=== PATIENT | female | born 1960 | race African-American/Black ===

== ENCOUNTER 2017-09-01 00:50 | Observation (INO) | payer OTHER ==
[~2017-09-01] VITALS: Ht 165.1 cm; Wt 82.6 kg
[~2017-09-01 00:50] MED LIST: ASPIRIN EC81 MG PO; CLONIDINE HCL0.3 MG PO; GLIMEPIRIDE2 MG PO; LIPITOR20 MG; LOSARTAN POTAS100 MG PO; PANTOPRAZOLE SO40 MG PO
[2017-09-01] MEDS ORDERED: LABETALOL HCL IV 5 MG/ML 20ML MDV IV STA ×2 (01:15→02:57)
[2017-09-01 01:40] LABS: BASOPHILS # (AUTO) 0.1 (0.0-0.1); BASOPHILS % 0.5 % (0.0-1.0); BILIRUBIN,URINE NEGATIVE (NEGATIVE); CLARITY,URINE SL CLOUDY (CLEAR); COLOR,URINE YELLOW (YELLOW); EOSINOPHILS # (AUTO) 0.2 (0.0-0.4); EOSINOPHILS % 1.6 % (0.0-6.0); HEMATOCRIT 47.6 % (34.2-44.1); HEMOGLOBIN 16.1 g/dL (12.0-16.0); KETONES,URINE NEGATIVE (NEGATIVE); LEUKOCYTE ESTERASE ,URINE NEGATIVE (NEGATIVE); LYMPHOCYTES # (AUTO) 3.4 (1.0-3.2); LYMPHOCYTES % 34.2 % (18.0-39.1); MEAN CORPUSCULAR HEMOGLOBIN 26.1 pg (28-32); MEAN CORPUSCULAR HGB CONC 33.8 g/dL (31-35); MONOCYTES # (AUTO) 0.9 (0.2-0.8); MONOCYTES % 9.4 % (4.4-11.3); NEUTROPHILS # (AUTO) 5.4 (2.1-6.9); NITRITE,URINE NEGATIVE (NEGATIVE); PLATELET COUNT 214 x10e3/uL (140-360); PROTEIN,URINE DIPSTICK 2+ (NEGATIVE); RED BLOOD COUNT 6.18 x10e6/uL (3.6-5.1); RED CELL DISTRIBUTION WIDTH 14.7 % (11.7-14.4); URINE UROBILINOGEN 0.2 mg/dL (0.2 - 1)
[2017-09-01 01:46] LABS: AMORPHOUS SEDIMENT,URINE MODERATE (FEW); BACTERIA,URINE MODERATE /HPF; EPITHELIAL CELLS,URINE FEW /LPF; RBC,URINE 0-5 /HPF (0-5); WBC,URINE (MAN) 0-5 /HPF (0-5)
[2017-09-01 01:49] LABS: INR 0.93; PROTHROMBIN TIME 12.9 seconds (11.9-14.5)
[2017-09-01 01:50] LABS: PARTIAL THROMBOPLASTIN TIME 28.3 seconds (23.8-35.5)
[2017-09-01 01:59] LABS: ALANINE AMINOTRANSFERASE 37 IU/L (0-55); ALBUMIN 4.6 g/dL (3.5-5.0); ALKALINE PHOSPHATASE 129 IU/L (40-150); ANION GAP 17.5 mmol/L (8-16); BLOOD UREA NITROGEN 10 mg/dL (7-26); BUN/CREATININE RATIO 11 (6-25); CALCIUM 10.9 mg/dL (8.4-10.2); CARBON DIOXIDE 22 mmol/L (22-29); CHLORIDE 105 mmol/L (98-107); CREATINE KINASE 61 IU/L (29-168); CREATININE, SERUM 0.87 mg/dL (0.57-1.11); EST GLOMERULAR FILTRATION RATE > 60 ML/MIN (60-); GLUCOSE 137 mg/dL (74-118); MAGNESIUM 1.9 MG/DL (1.3-2.1); POTASSIUM 3.5 mmol/L (3.5-5.1); SODIUM 141 mmol/L (136-145)
[2017-09-01 02:01] LABS: TROPONIN I 0.027 ng/mL (0-0.300)
[2017-09-01] MEDS ORDERED: AMLODIPINE BESY10 MG PO (02:25)
[2017-09-01] MEDS ORDERED: ASPIR 8181 MG PO (02:25)
[2017-09-01] MEDS ORDERED: LOSARTAN POTAS100 MG PO (02:25)
[2017-09-01] MEDS ORDERED: GLIMEPIRIDE2 MG PO (02:26)
[2017-09-01] MEDS ORDERED: PANTOPRAZOLE SO40 MG PO (02:26)
[2017-09-01] MEDS ORDERED: LIPITOR20 MG PO (02:26)
[2017-09-01] MEDS ORDERED: COREG12.5 MG PO (02:27)
[2017-09-01] MEDS ORDERED: CLONIDINE HCL0.3 MG PO (02:29)
[2017-09-01] MEDS ORDERED: VESICARE5 MG PO (02:33)
--- NOTE | 2017-09-01 02:56 | Diagnostic Imaging Report ---
History:Headache , HBP Comparison studies:None Technique: Axial images were obtained from the skull base to the vertex. Coronal and sagittal images reconstructed from the axial data. Intravenous contrast: None Findings: Scalp/skull: No abnormalities. Extra-axial spaces: No masses. No fluid collections. Brain sulci: Mildly prominent. Ventricles: Mild compensatory dilatation. No hydrocephalus. Parenchyma: Scattered small hypodensities in the supratentorial white matter are small vessel ischemic changes. Chronic left striatocapsular lacunar infarct.. No masses, hemorrhage, acute or chronic cortical vascular insults. Sellar/suprasellar region: No abnormalities. Craniocervical junction: Patent foramen magnum. No Chiari one malformation. Incidental findings: Atherosclerotic calcifications in the carotid siphons . Impression: No acute abnormalities. Chronic findings: 1. Mild generalized volume loss. 2. Mild supratentorial white matter small vessel ischemic changes. Signed by: DR Jaylen Jacobs M.D. on 09/01/2017 2:53 AM
[2017-09-01] MEDS ORDERED: KETOROLAC TROMETHAMINE 30 MG/ML VIAL IV STA (02:57)
[2017-09-01] MEDS ORDERED: PROMETHAZINE 12.5MG/ NACL 0.9% 12.5 MG/50 ML BAG IV ONE (03:00)
[2017-09-01] MEDS ORDERED: DIPHENHYDRAMINE HCL INJ 50 MG/ML VIAL IV ONE (03:00)
--- NOTE | 2017-09-01 03:04 | Diagnostic Imaging Report ---
CHEST SINGLE (PORTABLE), 09/01/2017 1:15 AM Technique: CHEST SINGLE (PORTABLE) Comparison: 02/25/2017 Clinical history: Chest Findings: Heart/mediastinum: Stable, likely normal for technique. Lungs: No consolidation or edema. Pleural spaces: No effusion or pneumothorax. Impression: No acute abnormality Signed by: Dr Makenzie Mandel MD on 09/01/2017 3:00 AM
[2017-09-01] MEDS ORDERED: DIPHENHYDRAMINE HCL INJ 1 ML ONE (03:06)
[2017-09-01] MEDS ORDERED: NIFEDIPINE 10 MG CAP PO STA (03:10)
[2017-09-01] MEDS ORDERED: ONDANSETRON HCL INJ 2 MG/ML VIAL IV PRN (03:15)
[2017-09-01] MEDS ORDERED: LABETALOL HCL IV 5 MG/ML 20ML MDV IV PRN (03:15)
[2017-09-01] MEDS ORDERED: DEXTROSE 50% SYRINGE 50 ML IV PRN (03:15)
[2017-09-01] MEDS ORDERED: ENALAPRILAT IV INJ 1.25 MG/ML VIAL IV STA (03:57)
[2017-09-01] MEDS: NITROGLYCERIN 2% OINT 1 GM PKT TOP SCH ×3 (04:03→11:28)
[2017-09-01 05:15] VITALS: BP 146/82
[2017-09-01 06:13] VITALS: BP 146/82
[2017-09-01 08:59] VITALS: BP 109/75
[2017-09-01] MEDS ORDERED: CLONIDINE HCL 0.3 MG TAB PO SCH (09:00)
[2017-09-01] MEDS ORDERED: LOSARTAN POTASSIUM 100 MG TAB PO SCH (09:00)
[2017-09-01] MEDS: INSULIN REGULAR, HUMAN 100 UNIT/1 ML 3ML VIAL SQ SCH ×3 (09:00→16:30)
[2017-09-01] MEDS ORDERED: PANTOPRAZOLE SOD 40 MG TABEC PO SCH (09:00)
[2017-09-01] MEDS ORDERED: AMLODIPINE BESYLATE 10 MG TAB PO SCH ×2 (09:00→21:00)
[2017-09-01] MEDS ORDERED: ASPIRIN 325 MG TAB EC PO SCH (09:00)
[2017-09-01] MEDS: CARVEDILOL 12.5 MG TAB PO SCH ×2 (09:20→16:27)
[2017-09-01 10:51] LABS: TROPONIN I 0.014 ng/mL (0-0.300)
[2017-09-01] MEDS ORDERED: ACETAMINOPHEN 325 MG TAB PO PRN (11:30)
[2017-09-01 12:02] LABS: AMPHETAMINES SCREEN,URINE NEGATIVE (NEGATIVE); BENZODIAZEPINES SCREEN,URINE POSITIVE (NEGATIVE); CANNABINOIDS SCREEN,URINE NEGATIVE (NEGATIVE); PHENCYCLIDINE SCREEN,URINE NEGATIVE (NEGATIVE)
[2017-09-01 12:15] VITALS: BP 108/69
[2017-09-01 12:45] LABS: CHOL/HDL RATIO 6.2 (3.0-3.6)
--- NOTE | 2017-09-01 13:38 | History and Physical ---
CHIEF COMPLAINT: Chest discomfort. HISTORY OF PRESENT ILLNESS: This is a 57-year-old woman who presents to [facility] with complaints of nonradiating left-sided chest pain that occurred suddenly on the day of admission. The patient states it was associated with shortness of breath, but no diaphoresis or nausea. The patient states that a month ago she had a stroke, which has left her with left-sided weakness. The patient states that throughout her life she has had multiple strokes. The patient states she has a remote history of cocaine use, but it has been at least 10 years. The patient denies any tobacco or alcohol use. In the emergency room, urinalysis did reveal slightly cloudy yellow urine with moderate bacteria. The patient's blood chemistries were unremarkable. The patient's B-type naturetic peptide was normal at 69.8. Complete blood count was also normal. However, in the emergency room on arrival the patient's blood pressure was 221/138. In the emergency room, the patient was given multiple medications, namely intravenous Vasotec, intravenous labetalol, and oral nifedipine to help lower blood pressure. The patient's blood pressure at this time is 180/69. Moreover, the patient is chest pain free at this time. REVIEW OF SYSTEMS GENERAL: Weight has been stable. No fever or chills. HEENT: No headaches. No visual changes. CARDIOVASCULAR: Chest pain as per HPI, but it is currently resolved. GI: No nausea with the chest pain. : No UTI symptoms. NEUROMUSCULAR: The patient has left-sided weakness from a stroke the patient experienced last month. PAST MEDICAL HISTORY 1. Cerebrovascular disease (history of multiple strokes). 2. Hypertensive heart disease. 3. Hyperlipidemia. 4. Type 2 diabetes mellitus. 5. GERD. 6. Overactive bladder. 7. Anxiety disorder. SOCIAL HISTORY: This woman is single. She lives in her house, but her adult son also lives with her. Denies any tobacco or alcohol use. The patient states she has a remote history of cocaine use, but it has been at least 10 years. ALLERGIES: NO KNOWN DRUG ALLERGIES. MEDICATIONS 1. Amlodipine 10 mg daily. 2. Aspirin 81 mg daily. 3. Atorvastatin 40 mg daily. 4. Carvedilol 12.5 mg b.i.d. 5. Clonidine 0.3 mg t.i.d. 6. Glimepiride 10 mg daily. 7. Losartan 100 mg daily. 8. Pantoprazole 40 mg daily. 9. VESIcare 5 mg daily. SURGICAL HISTORY: None. PHYSICAL EXAMINATION GENERAL: She is somnolent, but arousable. She is not in obvious distress. VITALS: Height is 5 feet 5 inches, weight 180 pounds. Calculated body mass index is 30. Blood pressure currently 180/69, pulse 84, temperature 98.1, oxygen saturation 96%, respiratory rate 18. INTEGUMENT: Skin is warm and dry. No pallor, jaundice, diaphoresis. HEENT: Sclerae clear. Moist mucous membranes. NECK: Supple. No evidence of jugular venous distention. CARDIOVASCULAR: Heart sounds are regular rate and rhythm with a tachycardiac rate and regular rhythm. The patient has an S4 gallop. LUNGS: No rales. No rhonchi or wheezes. ABDOMEN: Benign. EXTREMITIES: No edema or deformity. NEUROLOGIC: The patient has left-sided weakness. IMPRESSION 1. Atypical chest pain likely secondary to hypertensive urgency. 2. Hypertensive urgency, resolved. 3. Hypertensive heart disease. 4. Cerebrovascular disease (history of multiple transient ischemic attacks and strokes). 5. Recent cerebrovascular accident with left hemiparesis. PLAN 1. Will order a 2-D echocardiogram. 2. Rule out myocardial infarction. 3. Consult cardiology. 4. Will order urine toxicology. I spent 40 minutes in the care of this patient. Job#: [id number] ORQUIDEA
--- NOTE | 2017-09-01 15:33 | Consultation ---
DATE OF CONSULTATION: CARDIOLOGY CONSULTATION REASON FOR CONSULTATION: Chest pain and hypertension. HISTORY OF PRESENT ILLNESS: Ms. Hubbard is a 57-year-old female with a pertinent past medical history of recent CVA with left-sided weakness, hypertension, hyperlipidemia, and anxiety, who states that she came into the ER after having chest pain on the left side part of her chest for about 2 hours prior to coming in. She describes the pain is a pinching sensation underneath her left breast. It was radiating deep to her chest. On admission, she was noted to have elevated blood pressure. Highest recorded being 221/138. She also reports recently being admitted to [facility] diagnosed and treated for CVA. At the moment, she denies any chest pain, shortness of breath, palpitations, cough, chills, nausea, vomiting, dysuria, or syncope. She is noted to be resting comfortably in bed. However, drowsy and reported to have had multiple medications in the ER, including Phenergan. PAST MEDICAL HISTORY: Includes hypertension, CVA, TIA, anxiety, hyperlipidemia. PAST SURGICAL HISTORY: None. SOCIAL HISTORY: The patient reports a history of cocaine abuse. Reports that she has not used for the last 10 years. Lives at home with her son. Does not work. FAMILY HISTORY: Noncontributory. REVIEW OF SYSTEMS: Negative except as mentioned in the history of present illness. PHYSICAL EXAMINATION VITAL SIGNS: Temperature 98.3, pulse 87, respiratory rate 18, blood pressure 109/75, and oxygen saturation 96% on room air. GENERAL: Alert and oriented times 3. Slow to speak, but able to express herself. NECK: Supple. No JVD noted. LUNGS: Diminished breath sounds in posterior lower lobes. Otherwise, clear to auscultation. CARDIOVASCULAR: Regular rate and rhythm. A 2/6 diastolic murmur. S3. ABDOMEN: Rounded, hypoactive bowel sounds. LOWER EXTREMITIES: Two plus pedal pulses. CARDIOVASCULAR MEDICATIONS 1. Losartan 100 mg p.o. daily. 2. Coreg 12.5 mg p.o. b.i.d. 3. Aspirin 325 mg p.o. daily. 4. Nitroglycerin 1 g q.6 h. topically. 5. Clonidine 0.3 mg p.o. t.i.d. 6. Amlodipine 10 mg p.o. daily. 7. Labetalol q.4 h. p.r.n. IV for hypertension. LABS: WBC 10.02, hemoglobin 16.1, hematocrit 47.6, and platelets 214,000. Sodium 141, potassium 3.5, BUN 10, creatinine 0.87. GFR greater than 60. Glucose 133. Calcium 10.9. Magnesium 1.9. AST 31, ALT 27, alkaline phosphatase 126. CK-MB 1. Troponin 0.014. Creatinine kinase 44. Brain CT with no acute abnormality. Mild generalized volume loss and mild supratentorial white matter small vessel ischemic changes. Chest x-ray with no acute abnormality. Telemetry is normal sinus rhythm. IMPRESSION 1. Atypical chest pain. 2. Recent cerebrovascular accident with left-sided weakness. 3. Hypertensive urgency. 4. Hyperlipidemia. 5. Anxiety. 6. Diabetes mellitus. RECOMMENDATION: Maintain on telemetry at all times. Obtain echocardiogram. We will review records from recent admission at [place], and see if the stress test was completed there. Otherwise, will need a stress test due to multiple risk factors for heart disease. Monitor closely. Continue with the above-list of cardiac medications. Thank you, Dr. Escobar, for this consultation and allowing us to participate in this patient's care. DICTATED BY RUDDY VALENCIA NP Job#: [id number] ORQUIDEA
[2017-09-01 16:22] VITALS: BP 115/59
[2017-09-01] MEDS ORDERED: CLONIDINE HCL 0.1 MG TAB PO SCH (17:00)
[2017-09-01] MEDS ORDERED: KETOROLAC TROMETHAMINE 30 MG/ML VIAL IV ONE (17:30)
--- NOTE | 2017-09-02 10:05 | Discharge Summary ---
ADMIT DIAGNOSES 1. Atypical chest pain likely secondary to hypertensive urgency. 2. Hypertensive urgency. 3. Hypertensive heart disease. 4. Cerebrovascular disease (history of multiple transient ischemic attacks and strokes). 5. Recent cerebrovascular accident in July 2017 with subsequent left hemiparesis. DISCHARGE DIAGNOSES 1. Atypical chest pain likely secondary to hypertensive urgency, resolved. 2. Hypertensive urgency, resolved. 3. Hypertensive heart disease. 4. Hyperlipidemia. 5. Cerebrovascular disease (history of multiple transient ischemic attacks and strokes). 6. Recent cerebrovascular accident in July 2017 with subsequent left hemiparesis. HOSPITAL COURSE: This is a 57-year-old woman who was initially admitted to [facility] with the diagnosis of chest pain secondary to hypertensive urgency. On arrival to the emergency room, the patient's blood pressure did get as high as 220/138. The patient's blood pressure was lowered during this hospitalization with intravenous labetalol, Vasotec and oral nifedipine. The patient underwent serial cardiac enzymes, as well as electrocardiograms, which did not reveal any evidence of acute myocardial ischemia or infarction. The patient was seen by cardiology during this hospitalization, namely Dr. Darwin Alicea, who recommended outpatient cardiac workup. The patient was chest pain free on discharge. Her blood pressure was also stable on discharge. During this hospitalization, she was found to have an LDL cholesterol of 134 mg/dL, but she stated that she is taking her statin, namely atorvastatin. Urine toxicology done during this hospitalization was unremarkable, except it was positive for benzodiazepines. CONDITION ON DISCHARGE: Stable. DISCHARGE MEDICATIONS 1. Amlodipine 10 mg daily. 2. Aspirin 81 mg daily. 3. Atorvastatin 40 mg at bedtime. 4. Carvedilol 12.5 mg b.i.d. 5. Clonidine 0.3 mg t.i.d. 6. Glimepiride 2 mg daily. 7. Valsartan 100 mg daily. 8. Pantoprazole 40 mg a day. 9. VESIcare 5 mg. FOLLOWUP INSTRUCTIONS: The patient was instructed to follow up with her primary care doctor, namely Dr. Sabine Moody within 1-2 weeks. MARIANO MASON MD Job#: [id number] RI cc:MD SABINE CONTRERAS MD
== END 2017-09-01 20:45 | disposition home or self-care (01) ==
LOC: ER 00:50 → ERHOLD 03:30 → IMCU 04:55
PROVIDERS: ADMIT Internal Medicine; ATTEND Internal Medicine
DX: R07.89 Other chest pain (principal); I10 Essential (primary) hypertension; I69.354 Hemiplegia and hemiparesis following cerebral infarction affecting left non-dominant side; I11.9 Hypertensive heart disease without heart failure; E78.5 Hyperlipidemia, unspecified; F41.9 Anxiety disorder, unspecified; E11.9 Type 2 diabetes mellitus without complications; I16.0 Hypertensive urgency
CPT/HCPCS: 36415; 70450; 71010; 80053; 80061; 80307; 81001; 82550; 82553; 82948; 83735; 83880; 84484; 85025; 85610; 85730; 87086; 87186; 93005; 96365; 96374; 99284; G0378; J1200; J1885; J2550; J3490

== ENCOUNTER 2018-10-17 16:12 | Emergency (ER) | payer OTHER ==
[~2018-10-17] VITALS: Ht 165.1 cm; Wt 91.6 kg
[~2018-10-17 16:12] MED LIST changes: +AMLODIPINE BESY10 MG PO; +ASPIR 8181 MG PO; +COREG12.5 MG PO; +LIPITOR20 MG PO; +VESICARE5 MG PO
--- OUTSIDE RECORDS SUMMARY | 2018-10-17 16:14 | XMS REPORT ---
Author [facility] Address Unknown Phone Unavailable Care Team Providers Care Braze Operator Name Role Phone Mauricio ZAMORA Unavailable Unavailable Payers Payer Name Policy Type Policy Number Effective Date Expiration Date Problems This patient has no known problems. Allergies, Adverse Reactions, Alerts Allergy Name Allergy Type Status Severity Reaction(s) Onset Date Inactive Date Treating Clinician Comments No Known Allergies DA Active U 2018-06-11 00:00:00 No Known Allergies DA Active U 2018-05-30 00:00:00 No Known Allergies DA Active U 2017-11-18 00:00:00 Medications This patient has no known medications. Results Test Description Test Time Test Comments Text Results Atomic Results Result Comments CT BRAIN WO [facility] [address] [place] [address] Patient Name: AARON SUERO MR #: [id number] : 1960 Age/Sex: 57/F Req #: [id number] Adm Physician: Ordered by: WATSON ZAMORA MD Report #: [id number] Location: ER Room/Bed: Procedure: [id number] CT/CT BRAIN WO Exam Date: Exam Time: REPORT STATUS: Signed History:Headache , HBP Comparison studies:None Technique: Axial images were obtained from the skull base to the vertex. Coronal and sagittal images reconstructed from the axial data. Intravenous contrast: None Findings: Scalp/skull: No abnormalities. Extra-axial spaces: No masses. No fluid collections. Brain sulci: Mildly prominent. Ventricles: Mild compensatory dilatation. No hydrocephalus. Parenchyma: Scattered small hypodensities in the supratentorial white matter are small vessel ischemic changes. Chronic left striatocapsular lacunar infarct.. No masses, hemorrhage, acute or chronic cortical vascular insults. Sellar/suprasellar region: No abnormalities. Craniocervical junction: Patent foramen magnum. No Chiari one malformation. Incidental findings: Atherosclerotic calcificati ons in the carotid siphons . Impression: No acute abnormalities. Chronic findings: 1. Mild generalized volume loss. 2. Mild supratentorial white matter small vessel ischemic changes. Signed by: DR Jaylen Jacobs M.D. on 09/01/2017 2:53 AM Dictated By: JAYLEN ZAPIEN MD 2 Transcribed By: ALYSSA on 09/01/17252 COPY TO: WATSON ZAMORA MD [facility] ([facility]) [place] [address] Patient Name: AARON SUERO MR #: [id number] : 1960 Age/Sex: 57/F Req #: [id number] Adm Physician: Ordered by: WATSON ZAMORA MD Report #: [id number] Location: Room/Bed: Procedure: [id number] DX/CHEST SINGLE (PORTABLE) Exam Date: Exam Time: REPORT STATUS: Signed CHEST SINGLE (PORTABLE), 09/01/2017 1:15 AM Technique: CHEST SINGLE (PORTABLE) Comparison: 02/25/2017 Clinical history: Chest Findings: Heart/mediastinum: Stable, likely normal for technique. Lungs: No consolidation or edema. Pleural spaces: No effusion or pneumothorax. Impression: No acute abnormality Signed by: Dr Vinod Mandel MD on 09/01/2017 3:00 AM Dictated By: VINOD MANDEL MD 9 Transcribed By: ALYSSA on 09/01/17299 COPY TO: WATSON ZAMORA MD
--- NOTE | 2018-10-17 16:52 | Diagnostic Imaging Report ---
Examination: Single AP view of the chest. COMPARISON: 09/01/2017 INDICATION: Right leg weakness DISCUSSION: The lungs are well-inflated and without focal consolidation, pleural effusion, or pneumothorax. Stable cardiomediastinal contour with tortuosity of the thoracic aorta likely accentuated by portable, AP technique. No pulmonary edema. No acute osseous abnormality. IMPRESSION: No acute cardiopulmonary abnormality. Stable appearance of the chest relative to 09/01/2017. Signed by: Dr. Jose Erwin M.D. on 10/17/2018 4:49 PM
--- NOTE | 2018-10-17 17:30 | Diagnostic Imaging Report ---
History:Weakness and numbness. Slurred speech Comparison studies:CT head 09/01/2017 Technique: Axial images were obtained from the skull base to the vertex. Coronal and sagittal images reconstructed from the axial data. Intravenous contrast: None Dose modulation, iterative reconstruction, and/or weight based adjustment of the mA/kV was utilized to reduce the radiation dose to as low as reasonably achievable. Findings: Scalp/skull: No abnormalities. Extra-axial spaces: No masses. No fluid collections. Brain sulci: Mildly prominent. Ventricles: Mild compensatory dilatation. No hydrocephalus. Parenchyma: Scattered small hypodensities in the supratentorial white matter are small vessel ischemic changes. Chronic left striatocapsular left subinsular lacunar infarcts. No masses, hemorrhage, acute or chronic cortical vascular insults. Sellar/suprasellar region: No abnormalities. Craniocervical junction: Patent foramen magnum. No Chiari one malformation. Incidental findings: Atherosclerotic calcifications in the carotid siphons . Impression: No acute abnormalities. No significant change since previous CT head 09/01/2017 Chronic findings: 1. Mild generalized volume loss. 2. Mild supratentorial white matter small vessel ischemic changes. Signed by: DR Jaylen Jacobs M.D. on 10/17/2018 5:26 PM
--- NOTE | 2018-10-17 17:35 | NUR ---
PT IS REFUSING ANY CARE TIL FAMILY ARRIVES
[2018-10-17 18:14] LABS: BASOPHILS % 0.2 % (0.0-1.0); HEMATOCRIT 43.7 % (34.2-44.1); HEMOGLOBIN 14.3 g/dL (12.0-16.0); LYMPHOCYTES # (AUTO) 1.1 (1.0-3.2); LYMPHOCYTES % 17.6 % (18.0-39.1); MEAN CORPUSCULAR HEMOGLOBIN 25.4 pg (28-32); MEAN CORPUSCULAR HGB CONC 32.7 g/dL (31-35); MEAN CORPUSCULAR VOLUME 77.8 fL (81-99); MONOCYTES # (AUTO) 0.2 (0.2-0.8); MONOCYTES % 3.6 % (4.4-11.3); NEUTROPHILS # (AUTO) 4.9 (2.1-6.9); NEUTROPHILS % 78.1 % (38.7-80.0); PLATELET COUNT 155 x10e3/uL (140-360); RED BLOOD COUNT 5.62 x10e6/uL (3.6-5.1); RED CELL DISTRIBUTION WIDTH 14.8 % (11.7-14.4)
[2018-10-17 18:24] LABS: BILIRUBIN,URINE NEGATIVE (NEGATIVE); CLARITY,URINE SL CLOUDY (CLEAR); COLOR,URINE YELLOW (YELLOW); KETONES,URINE NEGATIVE (NEGATIVE); LEUKOCYTE ESTERASE ,URINE NEGATIVE (NEGATIVE); NITRITE,URINE NEGATIVE (NEGATIVE); PROTEIN,URINE DIPSTICK TRACE (NEGATIVE); URINE UROBILINOGEN 1 mg/dL (0.2 - 1)
[2018-10-17 18:25] LABS: INR 0.9
[2018-10-17 18:27] LABS: PARTIAL THROMBOPLASTIN TIME 25.2 seconds (23.8-35.5)
[2018-10-17 18:32] LABS: TRANSITIONAL EPI CELLS,URINE FEW
[2018-10-17 18:33] LABS: ALANINE AMINOTRANSFERASE 78 IU/L (0-55); ALBUMIN 4.1 g/dL (3.5-5.0); ALBUMIN/GLOBULIN RATIO 1.2 (0.8-2.0); ALKALINE PHOSPHATASE 112 IU/L (40-150); ANION GAP 17.6 mmol/L (8-16); BLOOD UREA NITROGEN 27 mg/dL (7-26); BUN/CREATININE RATIO 27 (6-25); CALCIUM 10.5 mg/dL (8.4-10.2); CARBON DIOXIDE 20 mmol/L (22-29); CHLORIDE 102 mmol/L (98-107); CREATINE KINASE 70 IU/L (29-168); CREATININE, SERUM 1.01 mg/dL (0.57-1.11); EST GLOMERULAR FILTRATION RATE > 60 ML/MIN (60-); GLUCOSE 189 mg/dL (74-118); POTASSIUM 4.6 mmol/L (3.5-5.1); SODIUM 135 mmol/L (136-145)
== END 2018-10-17 19:30 | disposition left against medical advice (07) ==
LOC: ER 16:12
DX: R53.1 Weakness (principal); G45.9 Transient cerebral ischemic attack, unspecified; I10 Essential (primary) hypertension; E11.9 Type 2 diabetes mellitus without complications; I50.9 Heart failure, unspecified; F41.9 Anxiety disorder, unspecified
CPT/HCPCS: 36415; 70450; 71045; 80053; 81001; 82550; 82553; 83880; 84484; 85025; 85610; 85730; 87086; 93005; 99284